=== PATIENT | male | born 1995 | race Caucasian/White ===

== ENCOUNTER 2020-06-08 07:27 | Day surgery (SDC) | payer OTHER, BC ==
[~2020-06-08] VITALS: Ht 162.6 cm; Wt 70.3 kg
[2020-06-08 08:01] VITALS: BP 124/67; PULSE 81; TEMP 98.4
--- NOTE | 2020-06-08 08:10 | NUR ---
TO RM 1 AT 0734- CALL LIGHT IN REACH AT BEDSIDE.
[2020-06-08] MEDS ORDERED: NORCO 325 MG-51 TAB PO (10:57)
[2020-06-08] MEDS ORDERED: MOTRIN 600600 MG/TAB PO (10:57)
[2020-06-08 11:38] VITALS: BP 116/68; PULSE 56; TEMP 97.3
--- NOTE | 2020-06-08 11:38 | NUR ---
TO RM 1 PER CART FROM PACU. ALERT ORIENTED X3, TALKING TO AND STAFF. C/O "SORE" ABDOMEN, BUT DENIES PAIN OR DISCOMFORT. DENIES NAUSEA OR VOMITING. RECEIVED WATER AND CRACKERS.
[2020-06-08 11:49] VITALS: TEMP 98.3
[2020-06-08 11:55] VITALS: BP 113/686; PULSE 89
--- NOTE | 2020-06-08 11:55 | NUR ---
PATIENT FACE TIMING WITH FAMILY.
[2020-06-08 12:10] VITALS: BP 106/61; PULSE 61
--- NOTE | 2020-06-08 12:10 | NUR ---
RESTING QUIETLY AND TALKING WITH .
[2020-06-08 12:25] VITALS: BP 108/61; PULSE 61
--- NOTE | 2020-06-08 12:30 | NUR ---
AMBULATED TO BATHROOM UPON RETURNING RECEIVED WATER, PUDDING AND CRACKERS. C/O INCREASING PAIN 07/17
--- NOTE | 2020-06-08 12:43 | NUR ---
ATE HALF PUDDING AND 1PKG OF CRACKERS AND SIPPING ON WATER C/O PAIN INCREASED 6-. RECEIVED NORCO 1 TAB.
--- NOTE | 2020-06-08 12:50 | NUR ---
RECEIVED DISCHARGE INSTRUCTIONS AND VERBALIZED UNDERSTANING. DISCONTINUED IV AND INT- CATHETER INTACT SKIN ADHESIVE CLEAN DRY INTACT OVER INCISION SITE. PATIENT GETTING DRESSED.
--- NOTE | 2020-06-08 13:10 | NUR ---
DISCHARGED PER WC BY NURSING STAFF TO PRIVATE CAR IN CARE OF . UPON DISCHARGE PATIENT BECAME NAUSEATED AFTER BEING PUSHED TO DOOR. OFFERED PATIENT TO GO BACK TO AND LAY DOWN. PATIENT STATED HE FELT HE WANTED TO GO HOME TO REST.
== END 2020-06-08 13:15 | disposition home or self-care (01) ==
LOC: SDCO 07:27
DX: K40.90 Unilateral inguinal hernia, without obstruction or gangrene, not specified as recurrent (principal); D17.6 Benign lipomatous neoplasm of spermatic cord; Z20.822 Contact with and (suspected) exposure to COVID-19; Z88.2 Allergy status to sulfonamides
CPT/HCPCS: C1781; J0690; J1100; J1885; J2405; J2704; J7120